=== PATIENT | female | born 1980 | race Caucasian/White ===

== ENCOUNTER 2017-07-04 10:17 | Emergency (ER) | payer BC ==
[2017-07-04 10:48] VITALS: PULSE 90; TEMP 98.8
--- NOTE | 2017-07-04 11:09 | EDPHY ---
HPI/HX/ROS/PE/MDM Narrative: CHIEF COMPLAINT:Cough HPI: The patient is a 36-year-old female with no past medical history. She complains of cough, fever and body aches for the last 4 days. Her daughter is recently getting over pneumonia. She did not get a flu shot this year secondary to her ache allergy. She denies hemoptysis. She complains of anterior chest wall pain after coughing. She has tried Tylenol and ibuprofen without significant relief. REVIEW OF SYSTEMS: Aside from elements discussed in the HPI, a comprehensive 10-point review of systems was reviewed and is negative. PMH: None significant. SOCIAL HISTORY: Ojci-wv-lwwh mom. . Denies alcohol or drug abuse. PHYSICAL EXAM: General:Patient is alert, in no acute distress. She is well appearing. ENT:Eyes are normal to inspection. ENT inspection normal. Neck: Normal inspection. Full range of motion. Respiratory:No respiratory distress. Breath sounds normal bilaterally. Cardiovascular: Regular rate and rhythm. Strong peripheral pulses. Normal cap refill. Abdomen:The abdomen is nontender to palpation. There are no peritoneal signs. There are normal bowel sounds. Back: Normal to inspection. No tenderness to palpation. Skin: Normal color. No rash. Warm and dry. Extremities: Normal appearance. Full range of motion. Neuro: Oriented x3. Normal motor function. Normal sensory function. MDM: This is a young healthy female who presents with signs and symptoms of pneumonia , confirmed by chest x-ray. Vital signs are normal and she is not hypoxic. She is well appearing and does not appear septic. I think she is an appropriate candidate for outpatient treatment with azithromycin for community- acquired pneumonia. We discussed strict return precautions. The patient agrees with this plan. Her influenza swab is negative. - Data Points Imaging Results: Imaging Impressions Chest X-Ray 07/04/17 10:24 Impression: Segmental left lower lobe pneumonia. Imaging: I viewed and interpreted images myself Laboratory Results: 07/04/17 11:05 Influenza A,B Rapid NEGATIVE FOR FLU (NEGATIVE) General Time Seen by Provider: 07/04/17 10:24 Initial Vital Signs: Initial Vital Signs Temperature (C) 37.1 C 07/04/17 10:40 Heart Rate 90 07/04/17 10:40 Respiratory Rate 18 07/04/17 10:40 Blood Pressure 113/79 07/04/17 10:40 O2 Sat (%) 96 07/04/17 10:40 O2 Delivery Mode Room Air Allergies/Adverse Reactions: cefaclor [From Ceclor] Allergy (Verified 07/04/17 10:52) egg [eggs] Allergy (Verified 07/04/17 10:52) erythromycin base [Erythromycin Base] Allergy (Verified 07/04/17 10:52) peanuts Allergy (Uncoded 07/04/17 10:52) Other-Enter Comments Home Medications: Medication Instructions Recorded AZITHROMYCIN [Z-PACK] 250 mg PO DAILY #6 tab 07/04/17 Departure - Departure Disposition: Home, Routine, Self-Care Clinical Impression: Pneumonia Condition: Good Instructions: Pneumonia (ED) Additional Instructions: Use ibuprofen and Tylenol as needed for fever and body aches. Follow up with your primary care physician within 72 hours for reevaluation. Drink plenty of fluids. Return to the emergency department immediately for high fever, severe headache or neck pain, difficulty breathing, abdominal pain, rash or other worsening of condition. Referrals: Kristina Hall MD [Primary Care Provider] - As per Instructions Prescriptions: AZITHROMYCIN [Z-PACK] 250 mg PO DAILY #6 tab
[2017-07-04 11:48] VITALS: BP 111/69; RESP 16; O2SAT 98
== END 2017-07-04 11:47 | disposition home or self-care (01) ==
LOC: CED 10:17
DX: J18.9 Pneumonia, unspecified organism (principal); Z91.010 Allergy to peanuts
CPT/HCPCS: 71020-PO; 87400-PO

== ENCOUNTER → 2017-07-17 | Outpatient (CLI) | payer BC | LOC: CIMAGING 17:26 | PROVIDERS: ATTEND Nurse Practitioner Family | DX: N92.1 Excessive and frequent menstruation with irregular cycle (principal) | CPT/HCPCS: 76856-PO ==